=== PATIENT | male | born 1975 | race Caucasian/White ===

== ENCOUNTER → 2016-07-02 | Outpatient (CLI) | payer BC ==
--- NOTE | 2016-07-02 14:33 | REP ---
KUB, TWO VIEWS: HISTORY: Pain. COMPARISON: 05/12/2015 The upper abdomen is not seen. A small amount of air is present in small and large intestine. There are no air fluid levels or dilated loops of intestine. There is no pneumoperitoneum. A calcified phlebolith is present in the right pelvis. IMPRESSION: Nonspecific bowel gas pattern. Signed by Oc Long MD 07/02/2016 02:34 P
== END ==
LOC: M WUC 12:44
PROVIDERS: ATTEND Nurse Practitioner Adult Health
DX: R10.9 Unspecified abdominal pain (principal); Z87.442 Personal history of urinary calculi